=== PATIENT | female | born 1960 | race Caucasian/White ===

== ENCOUNTER → 2022-11-10 | Outpatient (CLI) | payer SELFPAY ==
[2022-11-10 11:12] LABS: ALB/GLOB Ratio 0.9 RATIO (0.9-2.4); AST(SGOT) 23 U/L (15-37); Alanine Aminotransfer ALT/SGPT 35 U/L (13-56); Albumin, Serum 3.5 g/dL (3.2-5.0); Alkaline Phosphatase 145 U/L (45-117); Anion Gap 8 (5-15); BUN 22 mg/dL (7-18); BUN/Creat Ratio 19.8 RATIO (10-20); Calcium,Total 8.8 mg/dL (8.5-10.1); Chloride 109 mmol/L (98-107); Cholesterol 106 mg/dL (200); Creatinine, Serum 1.11 mg/dL (0.55-1.02); EST Glomerular Filtration Rate 53 mL/min (>60); Est Glom Filt Rate - Afr Amer 64 mL/min (>60); Globulin 3.9 g/dL (2.2-4.2); Glucose 93 mg/dL (74-106); High Density Lipoprotein 34 mg/dL; Protein, Total 7.4 g/dL (6.4-8.2); Sodium Level 142 mmol/L (136-145); Thyroid Stim Hormone (TSH) 1.68 uIU/mL (0.358-3.74); Triglycerides 140 mg/dL; Very Low Density Lipoprotein 28 mg/dL (5-40)
== END | disposition home or self-care (01) ==
PROVIDERS: PCP Family Medicine; Visit Provider Family Medicine
DX: Z00.00 Encounter for general adult medical examination without abnormal findings (principal); E78.00 Pure hypercholesterolemia, unspecified; E03.9 Hypothyroidism, unspecified
CPT/HCPCS: 36415; 80053; 80061; 84443

== ENCOUNTER → 2023-01-08 | Outpatient (CLI) | payer MEDICAID, SELFPAY ==
[2023-01-08 10:39] LABS: Hematocrit 27.3 % (37-47); Hemoglobin 8.3 g/dL (12.0-15.0); Mean Corp Hgb Conc 30.4 g/dL (32-36); Mean Corpuscular Hgb 29.2 pg (27.0-32.0); Mean Corpuscular Volume 96.1 fL (81-99); Mean Platelet Vol. 10.1 fl (6.2-12.0); Platelet Count 240 K/mm3 (150-450); RBC Distribution Width CV 13.5 % (11.6-14.6); RBC Distribution Width SD 46.5 fl (35.1-43.9); Red Blood Count 2.84 M/mm3 (4.2-5.4); White Blood Count 5.7 K/mm3 (4.4-11.0)
[2023-01-08 11:05] LABS: Anion Gap 7 (5-15); BUN 16 mg/dL (7-18); BUN/Creat Ratio 15.8 RATIO (10-20); Calcium,Total 8.5 mg/dL (8.5-10.1); Chloride 107 mmol/L (98-107); Creatinine, Serum 1.01 mg/dL (0.55-1.02); EST Glomerular Filtration Rate 59 mL/min (>60); Est Glom Filt Rate - Afr Amer 72 mL/min (>60); Glucose 88 mg/dL (74-106); Potassium 4.3 mmol/L (3.5-5.1); Sodium Level 140 mmol/L (136-145)
== END | disposition home or self-care (01) ==
LOC: LAB 09:50
PROVIDERS: PCP Family Medicine
DX: D62 Acute posthemorrhagic anemia (principal); E87.5 Hyperkalemia
CPT/HCPCS: 36415; 80048; 85027

== ENCOUNTER 2023-05-05 16:01 | Emergency (ER) | payer MEDICAID, SELFPAY ==
[2023-05-05 16:03] VITALS: BP 128/80; PULSE 94; RESP 16; TEMP 36.1; O2SAT 96; BMI 38.2
--- NOTE | 2023-05-05 16:30 | EX.ED.DYSGE1 ---
HPI <SHAYAN Lynn - Last Filed: 05/05/23 20:39> History of Present Illness Chief Complaint: Lower Extremity Injury Narrative Narrative: Patient states she was standing still and her right leg suddenly gave out and she felt pain in the lower femur and was unable to bear weight. She did not fall. She had a femur fracture with pascale placement in February [address] Thompson and she feels like the pascale is loose. Denies weakness numbness or tingling. PFSH <SHAYAN Lynn - Last Filed: 05/05/23 20:39> [facility] Medical History (Updated 05/05/23 @ 16:11 by Nahomy Hampton) Anxiety and depression Arthritis Allergy/AdvReac Type Severity Reaction Status Date / Time No Known Allergies Allergy Verified 05/05/23 16:33 Social History Smoking Status: Never smoker ROS <SHAYAN Lynn Last Filed: 05/05/23 20:39> ROS ED ROS Narrative Neuro: Negative for motor/sensory dysfunction. Skin: Negative for wound. Musc: Positive for right leg pain, no direct trauma. Heme: Negative for easy bruising, bleeding, lymphadenopathy. EXAM <SHAYAN Lynn Last Filed: 05/05/23 20:39> Physical Exam Narrative Exam Narrative: CONST: Patient sitting in no acute distress. EYES: Normal inspection. NECK: Normal inspection. RESP: No respiratory distress, CTAB. CVS: Regular rate and rhythm, no murmur, no gallop. SKIN: Color normal, no rash, warm, dry, intact. EXTREMITIES: Normal appearance, TTP over distal femur with no deformity or crepitus. Sensation intact, 2+ DP pulses. NEURO: Oriented x4. PSYCH: Normal affect. Const Vital Signs: 05/05/23 16:03 05/05/23 20:58 05/05/23 20:58 Temperature 97.0 F L Temperature Source Temporal Pulse Rate 94 89 Respiratory Rate 16 18 Blood Pressure 128/80 H 125/74 H 125/74 H Blood Pressure Mean 96 91 91 Pulse Ox 96 99 Oxygen Delivery Method Room Air <Dr. Sebastien Renteria, DO - Last Filed: 05/05/23 21:28> Physical Exam Const Vital Signs: 05/05/23 16:03 05/05/23 20:58 05/05/23 20:58 Temperature 97.0 F L Temperature Source Temporal Pulse Rate 94 89 Respiratory Rate 16 18 Blood Pressure 128/80 H 125/74 H 125/74 H Blood Pressure Mean 96 91 91 Pulse Ox 96 99 Oxygen Delivery Method Room Air MDM <SHAYAN Lynn - Last Filed: 05/05/23 20:39> [facility] Narrative Medical decision making narrative: History gathered from: Patient and family member Patient was standing and felt a crack and pain in her right distal femur. She has a history of distal femur fracture with intramedullary pascale placed in February 2023. She has pain and swelling over the distal femur but no deformity. She has limited hip and knee range of motion secondary to pain. Sensation and distal pulses intact. X-rays show distal femur fracture including fracture through the intramedullary pascale. I spoke with on-call orthopedic physician Dr. Montenegro who recommended transfer to a trauma facility. [facility] facilities are not excepting patients. I spoke with [facility] transfer line and she was accepted by Dr. Simms and is awaiting transportation. Differential: Distal femur fracture, knee fracture, muscle strain Consults: [facility] transfer team Lab Data Attestation: I reviewed the patient's lab results. Labs: Laboratory Results - last 24 hr 05/05/23 16:36 WBC 8.9 RBC 4.31 Hgb 13.0 Hct 39.4 MCV 91.4 MCH 30.2 MCHC 33.0 RDW Std Deviation 45.1 H RDW Coeff of Cinthia 13.6 Plt Count 302 MPV 10.2 Immature Gran % (Auto) 0.300 Neut % (Auto) 69.7 Lymph % (Auto) 21.9 Bledsoe % (Auto) 7.0 Eos % (Auto) 0.5 Baso % (Auto) 0.6 Absolute Neuts (auto) 6.2 Absolute Lymphs (auto) 1.94 Nucleated RBC % 0 PT 13.0 INR 1.0 Sodium 139 Potassium 3.6 Chloride 107 Carbon Dioxide 27.0 Anion Gap 5 BUN 21 H Creatinine 1.28 H Estim Creat Clear Calc 39.86 Est GFR (MDRD) Af Amer 54 L Est GFR (MDRD) Non-Af 45 L BUN/Creatinine Ratio 16.4 Glucose 110 H Calcium 9.0 Radiography Diagnostic Testing: Clinical Impression(s) from Imaging Studies Pelvis X-Ray 05/05/23 16:33 IMPRESSION: No acute fracture or dislocation. Postsurgical changes. Electronically Signed: Bonifacio Pierson MD at 17:19 EDT , Femur X-Ray 05/05/23 16:50 IMPRESSION: Distal femoral shaft fracture, including fractures through the distal right femoral shaft intramedullary pascale. Electronically Signed: Bonifacio Pierson MD at 17:21 EDT , ED attending interpretation of right hip shows no acute fracture or dislocation. ED attending interpretation of right femur shows distal femoral shaft and intramedullary pascale fracture. <Dr. Sebastien Renteria, DO - Last Filed: 05/05/23 21:28> [facility] Lab Data Labs: Laboratory Results - last 24 hr 05/05/23 16:36 WBC 8.9 RBC 4.31 Hgb 13.0 Hct 39.4 MCV 91.4 MCH 30.2 MCHC 33.0 RDW Std Deviation 45.1 H RDW Coeff of Cinthia 13.6 Plt Count 302 MPV 10.2 Immature Gran % (Auto) 0.300 Neut % (Auto) 69.7 Lymph % (Auto) 21.9 Bledsoe % (Auto) 7.0 Eos % (Auto) 0.5 Baso % (Auto) 0.6 Absolute Neuts (auto) 6.2 Absolute Lymphs (auto) 1.94 Nucleated RBC % 0 PT 13.0 INR 1.0 Sodium 139 Potassium 3.6 Chloride 107 Carbon Dioxide 27.0 Anion Gap 5 BUN 21 H Creatinine 1.28 H Estim Creat Clear Calc 39.86 Est GFR (MDRD) Af Amer 54 L Est GFR (MDRD) Non-Af 45 L BUN/Creatinine Ratio 16.4 Glucose 110 H Calcium 9.0 Radiography Diagnostic Testing: Clinical Impression(s) from Imaging Studies Pelvis X-Ray 05/05/23 16:33 IMPRESSION: No acute fracture or dislocation. Postsurgical changes. Electronically Signed: Bonifacio Pierson MD at 17:19 EDT , Femur X-Ray 05/05/23 16:50 IMPRESSION: Distal femoral shaft fracture, including fractures through the distal right femoral shaft intramedullary pascale. Electronically Signed: Bonifacio Pierson MD at 17:21 EDT , Treatment and Re-Evaluation :: I have personally performed a face to face assessment of the patient and have reviewed the LI Note. I performed a substantive portion of the visit including all aspects of the following. My jo findings include: History: Patient presents with right distal thigh pain that began today. Patient states she was standing and felt a pop in her right distal thigh. Patient states she has a pascale in her right femur and it felt like the pascale popped out of her distal femur. Patient denies any paresthesias or weakness. Patient states her pain is worse with any movement. Patient denies any other injuries. Exam: Vital signs are stable. Patient is afebrile. Patient is in no acute distress. Musculoskeletal exam reveals tenderness over the right distal femur. There is some mild edema. There is no obvious deformity. Range of motion was limited in all motions of the right knee and hip secondary to pain. Sensation was intact to light touch bilaterally in lower extremities. Pedal pulses are equal bilaterally. Patient is able to move all digits. Medical Decision Making: Differential diagnosis includes fracture and muscle strain. X-rays of the right femur and right hip will be obtained to assess for fracture. X-rays of the right femur were obtained. There are 4 views. On my independent interpretation, there is a distal femur fracture and fracture of the intramedullary pascale. There is minimal displacement. There is some mild angulation of the distal fragment posteriorly. Radiologist also interpreted the x-rays and agrees. X-rays of the pelvis were obtained. There is 1 view. On my independent interpretation, there is no acute fracture noted. Radiologist also interpreted the x-rays and agrees. Patient was advised of her findings. Case was discussed with Dr. Montenegro who was covering for Dr. Thompson. He recommended transferring the patient to a higher level of care. Case was discussed with the emergency department at [facility]. Patient was accepted to be transferred to the [facility] emergency department. Patient understands and is agreeable with the plan. All questions were answered. Discharge Plan Triage Chief Complaint: Lower Extremity Injury ED Midlevel Provider: Yue Pinto ED Provider: Sebastien Renteria Dx/Rx/DC Orders Primary Care Provider: Ana Willard Referrals: Ana Willard, DO [Primary Care Provider] - Disposition Disposition: Acute Care Hospital Discharge Location: [facility] Discharge Date/Time: 05/05/23 21:00
--- NOTE | 2023-05-05 16:33 | RAD_ITS ---
STUDY: X-RAY - PELVIS REASON FOR EXAM: Female, 62 years old. pain TECHNIQUE: One view of the pelvis was obtained. COMPARISON: None. FINDINGS: Postsurgical changes of bilateral distal lumbar spine fixation, bilateral sacroiliac screws, and right femoral intramedullary pascale. Normal bilateral iliac wings, sacroiliac joints and visualized sacrum. Normal visualized bilateral superior and inferior pubic rami. Normal pubic symphysis. Normal ischial tuberosities. Normal visualized right femoral head. Normal right acetabulum. Normal right hip joint. Normal visualized left femoral head. Normal left acetabulum. Normal left hip joint. RAD/Pelvis 1 or 2 Views IMPRESSION: No acute fracture or dislocation. Postsurgical changes. Electronically Signed: Bonifacio Pierson MD at 17:19 EDT ,
[2023-05-05] MEDS: Ondansetron 4 MG/2 ML Vial IV (16:34)
[2023-05-05] MEDS: Morphine 4 MG/ML Syringe IV ×2 (16:34→18:31)
--- NOTE | 2023-05-05 16:50 | RAD_ITS ---
STUDY: X-RAY - RIGHT FEMUR REASON FOR STUDY: Female, 62 years old. pain TECHNIQUE: 2 view(s) of the femur. COMPARISON: None. FINDINGS: Ununited fracture seen of the distal femoral shaft, and including fracture through the distal femoral intramedullary pascale. Mild impaction. Mild dorsal displacement and angulation. Satisfactory appearance of tibial and femoral components of total knee arthroplasty. RAD/Femur Min 2 Views IMPRESSION: Distal femoral shaft fracture, including fractures through the distal right femoral shaft intramedullary pascale. Electronically Signed: Bonifacio Pierson MD at 17:21 EDT ,
[2023-05-05 18:16] LABS: Absolute Lymphocyte Count 1.94 X10^3/uL (0.83-4.51); Absolute Neutrophil Count 6.2 X10^3/uL (2.0-7.7); Basophil# 0.05 X10^3/uL; Basophil% 0.6 % (0-1); Eosinophil# 0.04 X10^3/uL; Eosinophils% 0.5 % (0-5); Hematocrit 39.4 % (37-47); Lymphocyte # 1.94 X10^3/ul (0.83-4.51); Lymphocyte % 21.9 % (19-41); Mean Corpuscular Hgb 30.2 pg (27.0-32.0); Mean Corpuscular Volume 91.4 fL (81-99); Mean Platelet Vol. 10.2 fl (6.2-12.0); Monocyte# 0.62 X10^3/uL; NRBC Flagged by Analyzer 0 % (0-5); Neutrophil # 6.19 X10^3/uL (2.7-7.7); Neutrophil % 69.7 % (47-70); Platelet Count 302 K/mm3 (150-450); RBC Distribution Width CV 13.6 % (11.6-14.6); RBC Distribution Width SD 45.1 fl (35.1-43.9); Red Blood Count 4.31 M/mm3 (4.2-5.4); White Blood Count 8.9 K/mm3 (4.4-11.0)
[2023-05-05 18:32] LABS: Anion Gap 5 (5-15); BUN 21 mg/dL (7-18); BUN/Creat Ratio 16.4 RATIO (10-20); Chloride 107 mmol/L (98-107); Creatinine, Serum 1.28 mg/dL (0.55-1.02); EST Glomerular Filtration Rate 45 mL/min (>60); Est Glom Filt Rate - Afr Amer 54 mL/min (>60); Estimated Creatinine Clearance 39.86 ml/min; Glucose 110 mg/dL (74-106); Potassium 3.6 mmol/L (3.5-5.1); Sodium Level 139 mmol/L (136-145)
[2023-05-05] MEDS: HYDROmorphone 0.5 MG/0.5 ML SYRINGE IV (20:54)
[2023-05-05 20:58] VITALS: BP 125/74; PULSE 89; RESP 18; O2SAT 99
== END 2023-05-05 21:00 | disposition short-term general hospital (02) ==
PROVIDERS: Physician Assistant; Emergency Provider Emergency Medicine; PCP Family Medicine; Visit Provider Emergency Medicine
DX: S72.391A Other fracture of shaft of right femur, initial encounter for closed fracture (principal); X58.XXXA Exposure to other specified factors, initial encounter
CPT/HCPCS: 72170; 73552; 80048; 85025; 85610; 96374; 96375; 96376; 99285; A4216; J2405

== ENCOUNTER → 2023-05-17 05:00 | Outpatient (REF) | payer MEDICAID, SELFPAY ==
[2023-05-17 08:38] LABS: Absolute Lymphocyte Count 1.75 X10^3/uL (0.83-4.51); Absolute Neutrophil Count 3.9 X10^3/uL (2.0-7.7); Basophil# 0.01 X10^3/uL; Basophil% 0.2 % (0-1); Eosinophil# 0.11 X10^3/uL; Eosinophils% 1.7 % (0-5); Hematocrit 20.8 % (37-47); Hemoglobin 6.2 g/dL (12.0-15.0); Lymphocyte # 1.75 X10^3/ul (0.83-4.51); Lymphocyte % 26.9 % (19-41); Mean Corp Hgb Conc 29.8 g/dL (32-36); Mean Corpuscular Hgb 29.7 pg (27.0-32.0); Mean Corpuscular Volume 99.5 fL (81-99); Mean Platelet Vol. 9.5 fl (6.2-12.0); Monocyte# 0.56 X10^3/uL; Monocyte% 8.6 % (0-10); NRBC Flagged by Analyzer 0.6 % (0-5); Neutrophil # 3.93 X10^3/uL (2.7-7.7); Neutrophil % 60.4 % (47-70); Platelet Count 324 K/mm3 (150-450); RBC Distribution Width CV 16.1 % (11.6-14.6); RBC Distribution Width SD 55.6 fl (35.1-43.9); Red Blood Count 2.09 M/mm3 (4.2-5.4); White Blood Count 6.5 K/mm3 (4.4-11.0)
[2023-05-17 08:47] LABS: Anion Gap 1 (5-15); BUN 14 mg/dL (7-18); BUN/Creat Ratio 15.1 RATIO (10-20); Calcium,Total 7.9 mg/dL (8.5-10.1); Chloride 109 mmol/L (98-107); Creatinine, Serum 0.93 mg/dL (0.55-1.02); EST Glomerular Filtration Rate 65 mL/min (>60); Est Glom Filt Rate - Afr Amer 79 mL/min (>60); Glucose 75 mg/dL (74-106); Potassium 3.9 mmol/L (3.5-5.1); Sodium Level 140 mmol/L (136-145)
== END ==
LOC: OLS.SW 05:00
PROVIDERS: PCP Family Medicine; Visit Provider Internal Medicine
DX: R68.89 Other general symptoms and signs (principal); Z13.228 Encounter for screening for other metabolic disorders; D64.9 Anemia, unspecified
CPT/HCPCS: 36415; 80048; 85025; 86850; 86870; 86900; 86901; 86905; 86920; 86922

== ENCOUNTER 2023-05-18 08:35 | Outpatient (CLI) | payer MEDICAID, SELFPAY ==
[2023-05-18 08:53] VITALS: BP 104/64; PULSE 82; RESP 16; TEMP 36.4; O2SAT 97; BMI 36.8
[2023-05-18] MEDS: Acetaminophen 325 MG Tablet 650 MG PO (09:59)
[2023-05-18] MEDS: DiphenhydrAMINE 50 MG/ML Syringe IV (10:00)
[2023-05-18 10:33] VITALS: BP 99/49; PULSE 82; RESP 16
[2023-05-18 10:46] VITALS: BP 87/53; PULSE 93; RESP 18; TEMP 36.2; O2SAT 97
[2023-05-18 11:16] VITALS: BP 94/55; PULSE 90; RESP 16; TEMP 36.4; O2SAT 96
== END 2023-05-18 08:36 | disposition home or self-care (01) ==
LOC: MEDOUTP 08:35
PROVIDERS: PCP Family Medicine; Visit Provider Internal Medicine
DX: D64.9 Anemia, unspecified (principal)
CPT/HCPCS: 96374; 36415; 36430; 86850; 86870; 86900; 86901; 86902; 86905; 86920; 86922; A4216; J7040; P9016; P9604

== ENCOUNTER 2023-05-18 11:22 | Emergency (ER) | payer MEDICAID, SELFPAY ==
[2023-05-18 11:24] VITALS: BP 105/62; PULSE 94; RESP 16; TEMP 36.7; O2SAT 95; BMI 41.4
--- NOTE | 2023-05-18 11:29 | ED.RN ---
pt states she feels better and does not know why they sent her, they did not ask if i want to come here.
--- NOTE | 2023-05-18 11:57 | EX.ED.DYSGE1 ---
HPI History of Present Illness Chief Complaint: Allergic Reaction Informant: patient Narrative Narrative: Patient is a 62-year-old female with recent ORIF of her right distal femur after periprosthetic fracture on 05/06 and possible infection of hardware presenting from infusion center for concern of transfusion reaction. Patient received 3 blood transfusions while at [facility] and states that she had a reaction to 2 of them. Paperwork from [facility] shows that patient had postoperative anemia down to 6.3 on 05/11 despite only having 450 cc of estimated blood loss. She had a reaction that was myalgias, tachycardia, tremor chills and a lactic acidosis. It improved with IV fluids. Her transfusion reaction panel was negative and thought to be likely febrile nonhemolytic transfusion reaction per path report. Was agreeable with another transfusion with Benadryl pretreatment if necessary and started on oral iron. Patient had a hemoglobin of 6.3 yesterday at [facility] [place] where she is doing her rehab and blood transfusion was ordered today. Patient was pretreated with Benadryl but despite this had a reaction about 15 minutes and. She had a slight drop in her blood pressure to 87/53, heart rate of 93, complained of chest pain, facial flushing, and feeling claustrophobic with nausea and some mild shortness of breath. Blood was stopped about 20 minutes after that. She was into the ER for further evaluation of transfusion reaction. Patient does not follow with hematology. Patient states she is feeling better now and has no complaints. Patient states I told them I was going to have a reaction. [facility] Medical History Anxiety and depression Arthritis Home Medications aripiprazole 10 mg tablet 10 mg PO DAILY 05/18/23 [History Last Taken Unknown] atorvastatin 10 mg tablet 10 mg PO QHS 05/18/23 [History Last Taken Unknown] bupropion HCl 200 mg tablet,12 hr sustained-release 200 mg PO Q12H 05/18/23 [History Last Taken Unknown] cyclobenzaprine 10 mg tablet 10 mg PO TID 05/18/23 [History Last Taken Unknown] doxycycline monohydrate 100 mg capsule 100 mg PO Q12H 05/18/23 [History Last Taken Unknown] enoxaparin 40 mg/0.4 mL subcutaneous syringe 40 mg subcut Q12H 05/18/23 [History Last Taken Unknown] ferrous sulfate 325 mg (65 mg iron) tablet,delayed release 325 mg PO DAILY 05/18/23 [History Last Taken Unknown] furosemide 20 mg tablet 20 mg PO DAILY 05/18/23 [History Last Taken Unknown] gabapentin 100 mg capsule 200 mg PO TID 05/18/23 [History Last Taken Unknown] hydrochlorothiazide 25 mg tablet 25 mg PO DAILY 05/18/23 [History Last Taken Unknown] levothyroxine 175 mcg tablet 175 mcg PO DAILY 05/18/23 [History Last Taken Unknown] omeprazole 20 mg capsule,delayed release 20 mg PO DAILY 05/18/23 [History Last Taken Unknown] oxycodone 5 mg tablet 10 mg PO Q6H PRN pain 05/18/23 [History Last Taken Unknown] trazodone 50 mg tablet 50 mg PO QHS 05/18/23 [History Last Taken Unknown] Allergy/AdvReac Type Severity Reaction Status Date / Time No Known Allergies Allergy Verified 05/18/23 11:23 Social History Smoking Status: Never smoker ROS ROS ED Constitutional Constitutional ED: Reports chills and sweats; Denies fever(s) Cardiovascular Cardiovascular: Denies chest pain Respiratory/Chest Respiratory/Chest: Reports dyspnea Gastrointestinal Gastrointestinal: Reports nausea Musculoskeletal Musculoskeletal: Denies arthralgias or myalgias Psychiatric Psychiatric: Denies anxiety Hematologic/Lymphatic Hematologic/Lymphatic: Denies easy bleeding or easy bruising EXAM Physical Exam Const Vital Signs: 05/18/23 11:24 05/18/23 11:59 05/18/23 13:26 Temperature 98.1 F Temperature Source Oral Pulse Rate 94 85 Respiratory Rate 16 18 Blood Pressure 105/62 93/55 L Blood Pressure Mean 76 Pulse Ox 95 99 98 Oxygen Delivery Method Nasal Cannula Room Air Oxygen Flow Rate (L/min) 2 Positive well nourished and well developed General Appearance ED: well developed and NAD HEENT Reports moist mucous membranes Eyes PERRL and EOMs intact bilaterally Neck supple and no JVD Chest Wall inspection of chest normal Resp normal respiratory effort and clear to auscultation bilaterally Resp Narrative: No crackles appreciated Cardio regular rate, regular rhythm and no murmurs GI normal to inspection, nondistended, normoactive bowel sounds Extremity General Extremety ED: Negative for tenderness Neuro oriented x3 Sensorium / Orientation: alert Motor Exam: Negative for general weakness Psych mental status grossly normal Skin no rashes or lesions noted and no wounds MDM MDM MDM Narrative Medical decision making narrative: Patient is evaluated for concerns of transfusion reaction. Patient developed symptoms approximate 15 minutes and no blood transfusion. Patient has a stable anemia associated with recent hip surgery/hospitalization. Patient states she had prior similar transfusion reactions while in [facility] as well. She states the exact cause but was never found. Patient was premedicated with 50 mg of Benadryl and given Tylenol. While in the ER patient is asymptomatic. She has no O2 requirements. Her blood pressure is soft and this appears to be her baseline. She is not symptomatic. Case is discussed with nurse practitioner for her facility, Deepthi, who is comfortable with her being discharged back if she is cleared from the emergency room. I then spoke with oncology/hematology on-call, Dr. Myles, who states that patient might benefit from an extra dose of Benadryl if she has continued symptoms. Is possible she could have a 24 hours of symptoms associated transfusion reaction. We recommend iron transfusions. He is happy to see the patient outpatient follow-up. He does not think the patient requires admission extended observation if she is asymptomatic at this time. Patient is observed for total of 2 hours in the emergency room and remains asymptomatic. She is feeling much better. She remains hemodynamically stable and does not have increased O2 requirements. I did speak with the blood bank who states that her blood work is not consistent with a hemolytic reaction and her work-up was largely benign. With all these findings patient is comfortable with discharge back home. As her hemoglobin is stable over the past week I have a low suspicion for active GI bleed. In addition she has a normal BUN to creatinine ratio does not report any blood in her stool. Again low suspicion for an active GI bleed. She is discharged back to nursing facility for rehab for her hip and given a referral to hematology for outpatient follow-up. Management Discussion w/another healthcare provider: Parker and PCP Discharge Plan Triage Chief Complaint: Allergic Reaction ED Provider: Joseline Sheikh Dx/Rx/DC Orders Clinical Impression: Anemia, FNHTR (febrile nonhemolytic transfusion reaction) Prescriptions: No Action aripiprazole 10 mg tablet 10 mg PO DAILY Patient Comments: TAKE 1 TABLET BY MOUTH ONCE DAILY atorvastatin 10 mg tablet 10 mg PO QHS bupropion HCl 200 mg tablet sustained-release 12 hr 200 mg PO Q12H Patient Comments: TAKE 1 TABLET BY MOUTH TWICE DAILY cyclobenzaprine 10 mg tablet 10 mg PO TID doxycycline monohydrate 100 mg capsule 100 mg PO Q12H enoxaparin 40 mg/0.4 mL syringe 40 mg subcut Q12H Patient Comments: inject 1 (ONE) pen SUBCUTANEOUSLY ONCE DAILY for 25 days ferrous sulfate 325 mg (65 mg iron) tablet,delayed release (DR/EC) 325 mg PO DAILY furosemide 20 mg tablet 20 mg PO DAILY gabapentin 100 mg capsule 200 mg PO TID hydrochlorothiazide 25 mg tablet 25 mg PO DAILY Patient Comments: TAKE 1 TABLET BY MOUTH ONCE DAILY omeprazole 20 mg capsule,delayed release(DR/EC) 20 mg PO DAILY oxycodone 5 mg tablet 10 mg PO Q6H PRN (Reason: pain) Patient Comments: Take one to two tablets by mouth every 6 hours as needed for pain. levothyroxine 175 mcg tablet 175 mcg PO DAILY Patient Comments: TAKE 1 TABLET BY MOUTH ONCE DAILY trazodone 50 mg tablet 50 mg PO QHS Primary Care Provider: Ana Willard Referrals: Andrew Myles MD [Med Staff - Active Staff] - As soon as possible Ana Willard, DO [Primary Care Provider] - Activity Restrictions/Additional Instructions: Lab work was not consistent with hemolytic transfusion reaction. Tongue is should be safe to go back to [facility] [place]. I did discuss the case with hematology on-call, Dr. Myles, who recommended considering iron infusions instead of further blood transfusions. As her hemoglobin is stable I do not think she requires admission or repeat transfusion at this time. Give 50 mg of Benadryl as needed every 6 hours as well as Tylenol as needed for lingering symptoms. If she has further episodes of low blood pressure, any shortness of breath or difficulty breathing please return to the emergency room. Disposition Disposition: [facility] Facility Discharge Location: [facility] Discharge Date/Time: 05/18/23 13:45
[2023-05-18 11:59] VITALS: O2SAT 99
--- NOTE | 2023-05-18 12:04 | ED.RN ---
infusion center filled out and sent the Blood Transfusion Reaction Report form with pt.
[2023-05-18] MEDS: oxyCODONE 5 MG Tablet PO (12:20)
[2023-05-18 13:26] VITALS: BP 93/55; PULSE 85; RESP 18; O2SAT 98
== END 2023-05-18 13:45 | disposition skilled nursing facility (03) ==
PROVIDERS: Emergency Provider Emergency Medicine; PCP Family Medicine; Visit Provider Emergency Medicine
DX: R50.84 Febrile nonhemolytic transfusion reaction (principal); D64.9 Anemia, unspecified; F41.8 Other specified anxiety disorders; Z79.899 Other long term (current) drug therapy
CPT/HCPCS: 36415; 36430; 86850; 86870; 86900; 86901; 86902; 86905; 86920; 86922; 99283; J7040; P9016; A4216

== ENCOUNTER → 2023-05-23 | Outpatient (REF) | payer MEDICAID, SELFPAY ==
[2023-05-23 09:01] LABS: Absolute Neutrophil Count 2.8 X10^3/uL (2.0-7.7); Basophil# 0.04 X10^3/uL; Basophil% 0.8 % (0-1); Eosinophil# 0.14 X10^3/uL; Eosinophils% 2.8 % (0-5); Hematocrit 24.4 % (37-47); Mean Corp Hgb Conc 28.7 g/dL (32-36); Mean Corpuscular Hgb 29.3 pg (27.0-32.0); Mean Corpuscular Volume 102.1 fL (81-99); Mean Platelet Vol. 9.3 fl (6.2-12.0); Monocyte# 0.51 X10^3/uL; Monocyte% 10.2 % (0-10); NRBC Flagged by Analyzer 0 % (0-5); Neutrophil # 2.77 X10^3/uL (2.7-7.7); Neutrophil % 55.4 % (47-70); POSITIVE MORPHOLOGY YES; Platelet Count 352 K/mm3 (150-450); RBC Distribution Width CV 17.8 % (11.6-14.6); Red Blood Count 2.39 M/mm3 (4.2-5.4)
[2023-05-23 09:14] LABS: Vitamin B12 965 pg/mL (211-911); Vitamin D,25 Hydroxy 43.3 ng/mL
[2023-05-23 09:26] LABS: Anion Gap 4 (5-15); BUN 14 mg/dL (7-18); BUN/Creat Ratio 12.5 RATIO (10-20); Calcium,Total 8.5 mg/dL (8.5-10.1); Chloride 104 mmol/L (98-107); Creatinine, Serum 1.12 mg/dL (0.55-1.02); EST Glomerular Filtration Rate 52 mL/min (>60); Est Glom Filt Rate - Afr Amer 63 mL/min (>60); Glucose 84 mg/dL (74-106); Magnesium 2.3 mg/dL (1.6-2.6); Potassium 3.5 mmol/L (3.5-5.1); Sodium Level 138 mmol/L (136-145)
[2023-05-23 09:30] LABS: Differential Indicated SCAN CRITERIA MET
[2023-05-23 10:04] LABS: Differential Comment SCANNED; Polychromasia RARE
== END | disposition home or self-care (01) ==
LOC: OLS.SW 05:00
PROVIDERS: PCP Family Medicine; Visit Provider Internal Medicine
DX: I12.9 Hypertensive chronic kidney disease with stage 1 through stage 4 chronic kidney disease, or unspecified chronic kidney disease (principal); N18.31 Chronic kidney disease, stage 3a; E03.9 Hypothyroidism, unspecified; M97.11XD Periprosthetic fracture around internal prosthetic right knee joint, subsequent encounter; X58.XXXD Exposure to other specified factors, subsequent encounter
CPT/HCPCS: 36415; 80048; 82306; 82607; 83735; 84443; 85025

== ENCOUNTER → 2023-05-24 | Outpatient (REF) | payer MEDICAID, SELFPAY ==
[2023-05-24 09:50] LABS: Absolute Lymphocyte Count 1.36 X10^3/uL (0.83-4.51); Absolute Neutrophil Count 3.5 X10^3/uL (2.0-7.7); Basophil# 0.03 X10^3/uL; Basophil% 0.5 % (0-1); Eosinophils% 1.8 % (0-5); Hematocrit 25.3 % (37-47); Hemoglobin 7.5 g/dL (12.0-15.0); Lymphocyte # 1.36 X10^3/ul (0.83-4.51); Lymphocyte % 24.9 % (19-41); Mean Corp Hgb Conc 29.6 g/dL (32-36); Mean Corpuscular Hgb 30.1 pg (27.0-32.0); Mean Corpuscular Volume 101.6 fL (81-99); Mean Platelet Vol. 9.4 fl (6.2-12.0); Monocyte# 0.47 X10^3/uL; Monocyte% 8.6 % (0-10); NRBC Flagged by Analyzer 0 % (0-5); Neutrophil # 3.46 X10^3/uL (2.7-7.7); Neutrophil % 63.5 % (47-70); Platelet Count 321 K/mm3 (150-450); RBC Distribution Width CV 17.8 % (11.6-14.6); RBC Distribution Width SD 64.5 fl (35.1-43.9); Red Blood Count 2.49 M/mm3 (4.2-5.4); White Blood Count 5.5 K/mm3 (4.4-11.0)
[2023-05-24 10:05] LABS: Anion Gap 6 (5-15); BUN 17 mg/dL (7-18); BUN/Creat Ratio 14.3 RATIO (10-20); Calcium,Total 8.5 mg/dL (8.5-10.1); Chloride 104 mmol/L (98-107); Creatinine, Serum 1.19 mg/dL (0.55-1.02); EST Glomerular Filtration Rate 49 mL/min (>60); Est Glom Filt Rate - Afr Amer 59 mL/min (>60); Glucose 84 mg/dL (74-106); Potassium 3.5 mmol/L (3.5-5.1); Sodium Level 138 mmol/L (136-145)
== END | disposition home or self-care (01) ==
LOC: OLS.SW 05:00
PROVIDERS: PCP Family Medicine; Visit Provider Internal Medicine
DX: R68.89 Other general symptoms and signs (principal); Z13.228 Encounter for screening for other metabolic disorders
CPT/HCPCS: 36415; 80048; 85025

== ENCOUNTER → 2023-05-30 | Outpatient (REF) | payer MEDICAID, SELFPAY ==
[2023-05-30 09:49] LABS: Absolute Lymphocyte Count 1.65 X10^3/uL (0.83-4.51); Absolute Neutrophil Count 2.5 X10^3/uL (2.0-7.7); Basophil# 0.03 X10^3/uL; Basophil% 0.6 % (0-1); Eosinophil# 0.11 X10^3/uL; Eosinophils% 2.3 % (0-5); Hematocrit 26.5 % (37-47); Hemoglobin 8.2 g/dL (12.0-15.0); Lymphocyte # 1.65 X10^3/ul (0.83-4.51); Lymphocyte % 34.1 % (19-41); Mean Corp Hgb Conc 30.9 g/dL (32-36); Mean Corpuscular Hgb 30.1 pg (27.0-32.0); Mean Corpuscular Volume 97.4 fL (81-99); Mean Platelet Vol. 9.9 fl (6.2-12.0); Monocyte# 0.49 X10^3/uL; Monocyte% 10.1 % (0-10); NRBC Flagged by Analyzer 0 % (0-5); Neutrophil # 2.54 X10^3/uL (2.7-7.7); Neutrophil % 52.5 % (47-70); Platelet Count 258 K/mm3 (150-450); RBC Distribution Width CV 17.2 % (11.6-14.6); RBC Distribution Width SD 60.7 fl (35.1-43.9); Red Blood Count 2.72 M/mm3 (4.2-5.4); White Blood Count 4.8 K/mm3 (4.4-11.0)
[2023-05-30 10:25] LABS: Anion Gap 7 (5-15); BUN 14 mg/dL (7-18); BUN/Creat Ratio 13.5 RATIO (10-20); Calcium,Total 8.6 mg/dL (8.5-10.1); Chloride 103 mmol/L (98-107); Creatinine, Serum 1.04 mg/dL (0.55-1.02); EST Glomerular Filtration Rate 57 mL/min (>60); Est Glom Filt Rate - Afr Amer 69 mL/min (>60); Glucose 74 mg/dL (74-106); Magnesium 2.1 mg/dL (1.6-2.6); Potassium 3.4 mmol/L (3.5-5.1); Sodium Level 137 mmol/L (136-145)
== END | disposition home or self-care (01) ==
LOC: OLS.SW 09:43
PROVIDERS: PCP Family Medicine; Referring Provider Internal Medicine; Visit Provider Internal Medicine
DX: E78.5 Hyperlipidemia, unspecified (principal); I12.9 Hypertensive chronic kidney disease with stage 1 through stage 4 chronic kidney disease, or unspecified chronic kidney disease; N18.31 Chronic kidney disease, stage 3a; E03.9 Hypothyroidism, unspecified
CPT/HCPCS: 36415; 80048; 83735; 84443; 85025

== ENCOUNTER → 2023-06-23 | Outpatient (CLI) | payer MEDICAID, SELFPAY ==
--- NOTE | 2023-06-23 13:26 | BD_ITS ---
STUDY: DUAL ENERGY X-RAY ABSORPTIOMETRY / DXA REASON FOR EXAM: Female, 62 years old. 733.00OsteoporosisBONE DENSITY REASON FOR EXAM TECHNIQUE: Bone Mineral Density (BMD) measurements of lumbar spine and left hip were obtained. COMPARISON: None. FINDINGS: Lumbar Spine (L1-L4): g/cm2 (1.068) / T-score (0.8) / Z-score (2.3) Findings are suggestive of normal bone density with a low fracture risk. Left Femur Total: g/cm2 (0.755) / T-score (-1.5) / Z-score (-0.5) Left Femoral Neck: g/cm2 (0.653) / T-score (-1.8) / Z-score (-0.4) BD/Dexa Bone Density Study IMPRESSION: The patient is considered osteopenic as outlined below according to World Del[employer] Organization (WHO) criteria with a moderate fracture risk. Reference Information: The T-score is the number of standard deviations above or below the standard which is normal for young adults at their peak bone mineral density. The World Health Organization (WHO) interprets the T-scores as follows: Above -1 Normal bone density Between -1 and -2.5 Osteopenia Equal to / or below -2.5 Osteoporosis As a practical clinical guideline, osteopenia may be graded as follows: Mild -1 through -1.5 Moderate -1.6 through -2.0 Severe -2.1 through -2.4 The Z-score is the number of standard deviations above or below age-matched controls. A Z-score of less than -1.5 would be considered abnormal. References: 1. NIH Osteoporosis and Related Bone Diseases www osteo.org 2. International Society for Clinical Densitometry www iscd.org 3. National Osteoporosis Foundation www nof.org Electronically Signed: Hitesh Clement MD at 12:29 EDT ,
== END | disposition home or self-care (01) ==
PROVIDERS: PCP Family Medicine; Referring Provider Family Medicine; Visit Provider Family Medicine
DX: M81.0 Age-related osteoporosis without current pathological fracture (principal)
CPT/HCPCS: 77080

== ENCOUNTER → 2023-08-03 | Outpatient (CLI) | payer MEDICAID, SELFPAY ==
[2023-08-03 15:56] LABS: T4 Free Direct 1.21 ng/dL (0.76-1.46); Thyroid Stim Hormone (TSH) 5.11 uIU/mL (0.358-3.74)
== END | disposition home or self-care (01) ==
LOC: MFPLAB 12:11
PROVIDERS: PCP Family Medicine; Visit Provider Family Medicine
DX: E03.9 Hypothyroidism, unspecified (principal)
CPT/HCPCS: 36415; 84439; 84443

== ENCOUNTER → 2023-08-08 | Outpatient (CLI) | payer MEDICAID, SELFPAY ==
--- NOTE | 2023-08-08 12:55 | RAD_ITS ---
INDICATION: CLOSED FRACTURE OF RIGHT FEMUR W ROUTINE HEALING/UNSPEC FRACTURE EXAMINATION/TECHNIQUE: X-RAY - RIGHT XR Femur Min 2 Views COMPARISON: None. FINDINGS: Right femoral intramedullary pascale and right knee arthroplasty hardware again noted. Interval placement of ORIF fixation plate and screws spanning right femoral shaft. Sacroiliac fusion hardware partially imaged. Stable partial union of fracture distal femoral metadiaphysis with partial bridging callus formation and near anatomic alignment of major fracture fragments. No acute fracture or dislocation. RAD/Femur Min 2 Views IMPRESSION: ORIF right femur with stable incomplete healing of distal femoral shaft fracture. Electronically Signed: Krystian Ybarra MD at 22:31 EDT ,
== END | disposition home or self-care (01) ==
PROVIDERS: PCP Family Medicine
DX: S72.91XD Unspecified fracture of right femur, subsequent encounter for closed fracture with routine healing (principal)
CPT/HCPCS: 73552

== ENCOUNTER → 2023-11-24 | Outpatient (REF) | payer MEDICAID, SELFPAY ==
[2023-11-24 09:30] LABS: Hematocrit 26.1 % (37-47); Hemoglobin 8.1 g/dL (12.0-15.0); Mean Corpuscular Hgb 29.7 pg (27.0-32.0); Mean Corpuscular Volume 95.6 fL (81-99); Mean Platelet Vol. 9.5 fl (6.2-12.0); Platelet Count 298 K/mm3 (150-450); RBC Distribution Width SD 51.1 fl (35.1-43.9); Red Blood Count 2.73 M/mm3 (4.2-5.4); White Blood Count 7.1 K/mm3 (4.4-11.0)
[2023-11-24 09:57] LABS: Anion Gap 3 (5-15); BUN 12 mg/dL (7-18); BUN/Creat Ratio 15.4 RATIO (10-20); Calcium,Total 8.1 mg/dL (8.5-10.1); Chloride 110 mmol/L (98-107); Cholesterol 98 mg/dL (200); Creatinine, Serum 0.78 mg/dL (0.55-1.02); EST Glomerular Filtration Rate 80 mL/min (>60); Est Glom Filt Rate - Afr Amer 97 mL/min (>60); Glucose 81 mg/dL (74-106); High Density Lipoprotein 22 mg/dL; Magnesium 2.1 mg/dL (1.6-2.6); Potassium 3.9 mmol/L (3.5-5.1); Sodium Level 140 mmol/L (136-145); Triglycerides 157 mg/dL; Very Low Density Lipoprotein 31 mg/dL (5-40)
[2023-11-24 10:12] LABS: Vitamin B12 814 pg/mL (211-911); Vitamin D,25 Hydroxy 30.6 ng/mL
== END | disposition home or self-care (01) ==
LOC: OLS.SW 05:00
PROVIDERS: PCP Family Medicine; Visit Provider Internal Medicine
DX: I10 Essential (primary) hypertension (principal); E03.9 Hypothyroidism, unspecified
CPT/HCPCS: 36415; 80048; 80061; 82306; 82607; 83735; 84443; 85027

== ENCOUNTER → 2023-11-30 | Outpatient (REF) | payer MEDICAID, SELFPAY ==
[2023-11-30 08:35] LABS: Hemoglobin 8.7 g/dL (12.0-15.0); Mean Corpuscular Hgb 29.9 pg (27.0-32.0); Mean Corpuscular Volume 99.7 fL (81-99); Mean Platelet Vol. 9.4 fl (6.2-12.0); Platelet Count 511 K/mm3 (150-450); RBC Distribution Width CV 15.9 % (11.6-14.6); RBC Distribution Width SD 54.8 fl (35.1-43.9); Red Blood Count 2.91 M/mm3 (4.2-5.4); White Blood Count 7.4 K/mm3 (4.4-11.0)
[2023-11-30 10:14] LABS: Anion Gap 4 (5-15); BUN 16 mg/dL (7-18); BUN/Creat Ratio 18.5 RATIO (10-20); Chloride 110 mmol/L (98-107); Creatinine, Serum 0.87 mg/dL (0.55-1.02); EST Glomerular Filtration Rate 70 mL/min (>60); Est Glom Filt Rate - Afr Amer 85 mL/min (>60); Glucose 81 mg/dL (74-106); Magnesium 2.3 mg/dL (1.6-2.6); Potassium 3.4 mmol/L (3.5-5.1); Sodium Level 137 mmol/L (136-145)
== END | disposition home or self-care (01) ==
LOC: OLS.SW 07:15
PROVIDERS: PCP Family Medicine; Visit Provider Internal Medicine
DX: D64.9 Anemia, unspecified (principal); E87.6 Hypokalemia; M97.11XD Periprosthetic fracture around internal prosthetic right knee joint, subsequent encounter; S72.401S Unspecified fracture of lower end of right femur, sequela
CPT/HCPCS: 36415; 80048; 83735; 85027

== ENCOUNTER → 2023-12-07 | Outpatient (REF) | payer MEDICAID, SELFPAY ==
[2023-12-07 09:57] LABS: Hematocrit 25.2 % (37-47); Hemoglobin 7.5 g/dL (12.0-15.0); Mean Corp Hgb Conc 29.8 g/dL (32-36); Mean Corpuscular Hgb 29.8 pg (27.0-32.0); Mean Platelet Vol. 10.1 fl (6.2-12.0); Platelet Count 229 K/mm3 (150-450); RBC Distribution Width CV 16.1 % (11.6-14.6); RBC Distribution Width SD 58.3 fl (35.1-43.9); Red Blood Count 2.52 M/mm3 (4.2-5.4); White Blood Count 3.7 K/mm3 (4.4-11.0)
[2023-12-07 10:25] LABS: Anion Gap 4 (5-15); BUN 11 mg/dL (7-18); BUN/Creat Ratio 14.9 RATIO (10-20); Calcium,Total 7.6 mg/dL (8.5-10.1); Chloride 112 mmol/L (98-107); Creatinine, Serum 0.74 mg/dL (0.55-1.02); EST Glomerular Filtration Rate 85 mL/min (>60); Est Glom Filt Rate - Afr Amer 103 mL/min (>60); Glucose 76 mg/dL (74-106); Magnesium 2.4 mg/dL (1.6-2.6); Sodium Level 142 mmol/L (136-145)
[2023-12-13 05:28] LABS: Thyroid Stim Hormone (TSH) 8.61 uIU/mL (0.358-3.74)
== END | disposition home or self-care (01) ==
LOC: OLS.SW 04:00
PROVIDERS: PCP Family Medicine; Referring Provider Internal Medicine; Visit Provider Internal Medicine
DX: E03.9 Hypothyroidism, unspecified (principal); D50.0 Iron deficiency anemia secondary to blood loss (chronic); I12.9 Hypertensive chronic kidney disease with stage 1 through stage 4 chronic kidney disease, or unspecified chronic kidney disease; N18.31 Chronic kidney disease, stage 3a
CPT/HCPCS: 36415; 80048; 83735; 84443; 85027

== ENCOUNTER → 2023-12-14 05:15 | Outpatient (REF) | payer MEDICAID, SELFPAY ==
[2023-12-14 09:21] LABS: Thyroid Stim Hormone (TSH) 2.94 uIU/mL (0.358-3.74)
== END ==
LOC: OLS.SW 05:15
PROVIDERS: PCP Family Medicine; Visit Provider Internal Medicine
DX: E03.9 Hypothyroidism, unspecified (principal)
CPT/HCPCS: 36415; 84443

== ENCOUNTER → 2024-03-09 | Outpatient (CLI) | payer MEDICAID, SELFPAY ==
[2024-03-09 17:43] LABS: Absolute Lymphocyte Count 1.58 X10^3/uL (0.83-4.51); Absolute Neutrophil Count 4.4 X10^3/uL (2.0-7.7); Basophil# 0.03 X10^3/uL; Basophil% 0.4 % (0-1); Hematocrit 39.6 % (37-47); Hemoglobin 12.7 g/dL (12.0-15.0); Lymphocyte # 1.58 X10^3/ul (0.83-4.51); Lymphocyte % 23.6 % (19-41); Mean Corp Hgb Conc 32.1 g/dL (32-36); Mean Corpuscular Hgb 28.9 pg (27.0-32.0); Mean Corpuscular Volume 90.2 fL (81-99); Mean Platelet Vol. 10.3 fl (6.2-12.0); Monocyte# 0.63 X10^3/uL; Monocyte% 9.4 % (0-10); NRBC Flagged by Analyzer 0 % (0-5); Neutrophil # 4.44 X10^3/uL (2.7-7.7); Neutrophil % 66.3 % (47-70); Platelet Count 236 K/mm3 (150-450); RBC Distribution Width CV 12.6 % (11.6-14.6); RBC Distribution Width SD 41.3 fl (35.1-43.9); Red Blood Count 4.39 M/mm3 (4.2-5.4); White Blood Count 6.7 K/mm3 (4.4-11.0)
[2024-03-09 19:02] LABS: Calcium,Total 8.8 mg/dL (8.5-10.1); Ferritin 140 ng/mL (8-252); Iron 46 ug/dL (50-170); Iron Binding Capacity,Total 296 ug/dL (250-450); PERCENT IRON SATURATION 15.5 % (15.0-55.0); Thyroid Stim Hormone (TSH) 0.01 uIU/mL (0.358-3.74)
[2024-03-12 10:01] LABS: Vitamin B12 453 pg/mL (211-911); Vitamin D,25 Hydroxy 34.4 ng/mL
== END | disposition home or self-care (01) ==
PROVIDERS: PCP Family Medicine; Referring Provider Family Medicine; Visit Provider Family Medicine
DX: D50.9 Iron deficiency anemia, unspecified (principal); E03.9 Hypothyroidism, unspecified; M85.80 Other specified disorders of bone density and structure, unspecified site
CPT/HCPCS: 36415; 82306; 82310; 82607; 82728; 82746; 83540; 83550; 84443; 85025

== ENCOUNTER → 2024-03-21 | Outpatient (CLI) | payer MEDICAID, SELFPAY ==
--- NOTE | 2024-03-21 13:54 | BI_ITS ---
MAMMOGRAPHY - BILATERAL SCREENING REASON FOR EXAM: Female, 63 years old. Routine annual screening examination. PERTINENT HISTORY: Non-contributory. TECHNIQUE: Digital bilateral breast elsie (3D mammographic acquisition) in the CC and MLO projections. 2-D mediolateral oblique (MLO) and craniocaudad (CC) views of both breasts were obtained. CAD: Full Field Digital Mammography with Computer Added Detection was performed. COMPARISON: Comparison is made with prior study dated April 30, 2011. FINDINGS: Breast Composition: There are scattered areas of fibroglandular density. There are no dominant masses or suspicious calcifications. No other significant abnormalities are identified. There has been no significant change since the prior study. BI/SCRN MAMM (CAD)W/ELSIE BILAT IMPRESSION: Stable bilateral screening mammogram. Yearly follow-up mammogram recommended. (A) ASSESSMENT CATEGORY: BIRADS Category 1: Negative. A letter regarding these results will be sent to the patient by the facility within 30 days. Approximately 10% of breast cancers are not detected by mammography. A normal mammogram should not delay biopsy of a clinically suspicious abnormality. [id number] Electronically Signed: Hitesh Clement MD at 14:51 EDT ,
== END | disposition home or self-care (01) ==
LOC: OPBI 13:54
PROVIDERS: PCP Family Medicine; Referring Provider Family Medicine; Visit Provider Family Medicine
DX: Z12.31 Encounter for screening mammogram for malignant neoplasm of breast (principal)
CPT/HCPCS: 77063; 77067

== ENCOUNTER → 2024-10-08 | Outpatient (CLI) | payer MEDICAID, SELFPAY ==
[2024-10-08 17:59] LABS: Thyroid Stim Hormone (TSH) 0.037 uIU/mL (0.358-3.740)
== END | disposition home or self-care (01) ==
LOC: MFPLAB 13:58
PROVIDERS: PCP Family Medicine; Referring Provider Family Medicine; Visit Provider Family Medicine
DX: E03.9 Hypothyroidism, unspecified (principal)
CPT/HCPCS: 36415; 84443

== ENCOUNTER → 2025-01-15 | Outpatient (CLI) | payer MEDICAID, SELFPAY ==
[2025-01-15 20:19] LABS: Thyroid Stim Hormone (TSH) 0.208 uIU/mL (0.300-4.200)
== END | disposition home or self-care (01) ==
LOC: MFPLAB 14:15
PROVIDERS: PCP Family Medicine; Referring Provider Family Medicine; Visit Provider Family Medicine
DX: E03.9 Hypothyroidism, unspecified (principal)
CPT/HCPCS: 36415; 84443

== ENCOUNTER → 2025-03-13 | Outpatient (CLI) | payer MEDICAID, SELFPAY | END | disposition home or self-care (01) | LOC: MFPLAB 14:05 | PROVIDERS: PCP Family Medicine; Referring Provider Family Medicine; Visit Provider Family Medicine | DX: E03.9 Hypothyroidism, unspecified (principal) | CPT/HCPCS: 36415; 84443 ==